=== PATIENT | female | born 1965 | race Caucasian/White ===

== ENCOUNTER → 2017-11-21 | Outpatient (CLI) | payer MEDICARE, OTHER ==
[~2017-11-21] MED LIST: CYCLOBENZAPRINE10 MG PO; FLUOXETINE HCL20 M1; MACROBID 100 M100 M2 PO; METHYLPREDNIS1000 M1; PHENERGAN 25 MG25 M1 PO; PREDNISONE 20 M20 M1 PO; SIMVASTATIN5 MG PO; TOPAMAX50 MG PO
[2017-11-21 10:13] LABS: ABSOLUTE EOSINOPHILS 0.1 thou/uL (0.0-0.7); ABSOLUTE LYMPHOCYTES 0.6 thou/uL (0.8-5.3); ABSOLUTE MONOCYTES 0.3 thou/uL (0.0-1.2); ABSOLUTE NEUTROPHILS 3.7 thou/uL (1.6-8.1); BASOPHILS 0.9 %; EOSINOPHILS 2.4 %; HEMATOCRIT 40.4 % (37.0-47.0); HEMOGLOBIN 13.4 gm/dL (12.0-15.0); LYMPHOCYTES 12.2 %; MCH 28.3 pg (26.0-34.0); MCHC 33.2 g/dL (28.0-37.0); MCV 85.3 fL (80.0-100.0); MONOCYTES 5.5 %; MPV 8.5 fl. (7.2-11.1); NUCLEATED RBCS 0 /100WBC; PLATELET COUNT* 278 thou/uL (150-400); RBC 4.73 mil/uL (4.20-5.00); WBC 4.6 thou/uL (4.0-11.0)
[2017-11-21 10:31] LABS: ALBUMIN 3.3 g/dL (3.4-5.0); ALKALINE PHOSPHATASE 67 U/L (46-116); ANION GAP 5 mmol/L (7-16); BUN 16 mg/dL (7-18); CALCIUM 8.8 mg/dL (8.5-10.1); CHLORIDE 107 mmol/L (98-107); CHOLESTEROL 181 mg/dL (<200); CO2 32 mmol/L (21-32); CREATININE 0.8 mg/dL (0.6-1.3); GLUCOSE 86 mg/dL (70-99); HDL CHOLESTEROL 70 mg/dL (>40); LDL CHOLESTEROL 100 mg/dL (<100); POTASSIUM 4.4 mmol/L (3.5-5.1); SGOT 15 U/L (15-37); SGPT 20 U/L (30-65); SODIUM 144 mmol/L (136-145); TC:HDL 2.6 Ratio (Not establshd); TOTAL BILIRUBIN 0.6 mg/dL (<0.1-1.0); TOTAL PROTEIN 6.7 g/dL (6.4-8.2); TRIGLYCERIDE 58 mg/dL (<150); VLDL 12 mg/dL (<40)
[2017-11-21 10:34] LABS: SERUM ASSESSMENT Clear
[2017-11-21 18:11] LABS: GLYCOHEMOGLOBIN (HGB A1C) 5.1 % (4.8-5.6); eGFR IF AFRICAN AMERICAN 96 (>59)
[2017-11-21 21:07] LABS: PARATHYROID HORMONE 54 pg/mL (15-65)
== END ==
LOC: M.LAB 09:46
DX: E66.01 Morbid (severe) obesity due to excess calories (principal); G35 Multiple sclerosis; R79.89 Other specified abnormal findings of blood chemistry; Z79.899 Other long term (current) drug therapy

== ENCOUNTER → 2018-05-03 | Outpatient (CLI) | payer MEDICARE, OTHER ==
[2018-05-03 10:13] LABS: ABSOLUTE EOSINOPHILS 0.1 thou/uL (0.0-0.7); ABSOLUTE LYMPHOCYTES 0.7 thou/uL (0.8-5.3); ABSOLUTE MONOCYTES 0.2 thou/uL (0.0-1.2); ABSOLUTE NEUTROPHILS 3.3 thou/uL (1.6-8.1); BASOPHILS 0.8 %; EOSINOPHILS 2.9 %; HEMATOCRIT 37.6 % (37.0-47.0); HEMOGLOBIN 12.4 gm/dL (12.0-15.0); LYMPHOCYTES 16.3 %; MCH 28.5 pg (26.0-34.0); MCV 86.3 fL (80.0-100.0); MONOCYTES 5.6 %; MPV 8.4 fl. (7.2-11.1); NUCLEATED RBCS 0 /100WBC; PLATELET COUNT* 265 thou/uL (150-400); POLYS 74.4 %; RBC 4.35 mil/uL (4.20-5.00); RDW-CV 14.7 % (10.5-14.5); WBC 4.4 thou/uL (4.0-11.0)
[2018-05-03 10:25] LABS: ALBUMIN 3.4 g/dL (3.4-5.0); CALCIUM 8.9 mg/dL (8.5-10.1); CREATININE 0.8 mg/dL (0.6-1.3); POTASSIUM 4.1 mmol/L (3.5-5.1); TOTAL BILIRUBIN 0.6 mg/dL (<0.1-1.0)
== END ==
LOC: M.LAB 09:47
PROVIDERS: Psychiatry & Neurology Neuromuscular Medicine
DX: G35 Multiple sclerosis (principal); F41.9 Anxiety disorder, unspecified; G43.909 Migraine, unspecified, not intractable, without status migrainosus; E78.5 Hyperlipidemia, unspecified; E66.01 Morbid (severe) obesity due to excess calories; Z79.899 Other long term (current) drug therapy

== ENCOUNTER → 2020-02-28 | Outpatient (CLI) | payer OTHER ==
[2020-02-28 13:06] LABS: CALCIUM 9.1 mg/dL (8.5-10.1); CREATININE 0.8 mg/dL (0.6-1.3); POTASSIUM 4.7 mmol/L (3.5-5.1)
== END ==
LOC: M.MRI 11-29 13:30 → M.LAB 11-29 14:30 → M.MRI 12-13 13:30 → M.LAB 12:30 → M.MRI 13:30
PROVIDERS: Psychiatry & Neurology Neuromuscular Medicine
DX: G35 Multiple sclerosis (principal); G37.9 Demyelinating disease of central nervous system, unspecified; R42 Dizziness and giddiness